=== PATIENT | female | born 1955 | race Caucasian/White ===

== ENCOUNTER → 2017-10-26 | Outpatient (CLI) | payer OTHER ==
[~2017-10-26] VITALS: Ht 165.1 cm; Wt 49.9 kg
[~2017-10-26] MED LIST: LODINE XL400 MG PO; LODINE400 M1 PO; TRAMADOL 50 MG50 MG PO; VALIUM5 MG PO; VITAMIN D32000 UNI1 PO; ZOLOFT100 MG PO
--- NOTE | ~2017-10-26 | HC ---
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 How the diagnosis was reached is not available to me. The patient actually comes to see me because somehow the patient's was very pleased with my care of him in the past and recommended she visit with me. The patient's primary physician is Dr. Dukes, renal case manager is Dr. Kramer, and I believe she might have seen my son, a renal case manager, as well. The patient has been experiencing intermittent episodes of significant malaise associated with nausea, burping, increased heart rate and all in all feeling miserable and this tends to happen every now and then for unknown reason. The patient has discussed these issues with Dr. Dukes. She was referred to the renal case manager as mentioned above and she did have echocardiogram, Holter monitor and a chemical stress test and all those tests were said to be normal. She also was evaluated with arterial blood gases and pulmonary function tests and those were said to be normal as well. The patient has continued to experience these intermittent episodes of not feeling well, the last a few months ago. They tend to last for a while and as they come they tend to go away. Essentially no focal signs or symptoms. The patient has elected to get a device that checks her EKG and blood pressures for which she has paid $100 and these tests have shown she is mainly in sinus rhythm and blood pressure appears to be normal. PAST MEDICAL HISTORY: Osteoarthritis. Osteoporosis. Anxiety. 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 SOCIAL HISTORY: . One daughter. No tobacco. No alcohol. No pets. Used to work at a [employer] in [place] and subsequently became disabled when she was diagnosed to have post-polio syndrome. ALLERGIES: SHE IS ALLERGIC OR INTOLERANT TO PARLODEL (PASSING OUT), PROLIA (BONE PAIN) AND TETRACYCLINE (FACIAL SWELLING). MEDICATIONS: She is on treatment with vitamin D3 at 2000 units daily, sertraline 100 mg daily, tramadol 50 mg maybe once daily, diazepam 5 mg [address] [address] CONSULTATION Name: KAVITA BOLAÑOS Room #: REG LIN Darnell#: [id number] Admission: 10/26/17 Attend Phys: Rylan Vargas Discharge: Date of : 57 Report #: [id number] tablet to one tablet every 6 hours if needed, Etodolac 400 mg as needed. REVIEW OF SYSTEMS: Essentially noncontributory besides what has been stated above. She was recently evaluated by Dr. Hamilton Dukes and blood tests were said to be normal. PHYSICAL EXAMINATION: GENERAL: A well-developed and nourished woman, in no distress. VITAL SIGNS: Height 5 feet 5 inches, weight 110 pounds, BP 142/79, pulse 87, temperature 99.2, O2 saturation 99% on room air. After I finished physical examination, the patient tells me she has a pounding headache. I rechecked her blood pressure, in the sitting position is 157/103 and pulse 92, in the standing position her blood pressure is 176/105 and pulse 98. HEENMT: Head normocephalic, atraumatic. Pupils reactive. Mouth: Good oral hygiene, dentition. Ears: Dull looking tympanic membrane. She wears hearing aids because of decreased hearing. NECK: Supple, no thyromegaly or lymphadenopathy. No carotid bruits. LUNGS: Clear to auscultation. HEART: S1, S2. No gallop or murmur. Peripheral pulses palpable. No bruits over femoral. ABDOMEN: Soft, no masses or megaly. BREAST, PELVIC AND RECTAL: Deferred. EXTREMITIES: No clubbing, cyanosis. NEUROLOGIC: Grossly within normal limits. ASSESSMENT: 1. Entertain possibility of postural hypotension. 2. Situational hypertension (white coat high blood pressure). 3. Post-polio syndrome, history of. 4. Situational anxiety with question depression. SUGGESTIONS: At present, obviously this patient has no any infectious disease process, which is what I am specialized in. The possibility of postural hypotension comes to mind and she has the means to check her blood pressure in the supine, sitting and standing position. Obviously, these blood pressure checks must be done when she is symptomatic. The possibility of obtaining a tilt table test is also in order and this could be scheduled by Dr. Hamilton Dukes. Since she has these major changes in blood pressure, I believe Dr. Dukes's idea of using a beta isabelle is a correct one. Bystolic is a beta isabelle that first comes to mind. Obviously, she must start with the lowest possible dose, like 5 mg daily. I would like to hear from the test results and her progress over the months and years. [facility] [address] [place] [address] CONSULTATION Name: KAVITA BOLAÑOS Room #: MAGALY Darnell#: [id number] Admission: 10/26/17 Attend Phys: Rylan Vargas Discharge: Date of : 57 Report #: [id number] Dukes, thank you for requesting my suggestions in the care of your patient. <ELECTRONICALLY SIGNED> By: Rylan Singer MD 10/27/17 1015 1157 1235 Rylan Singer MD /nt
[2017-10-26 10:55] VITALS: BP 142/79
== END ==
LOC: SEN 08:23
DX: I10 Essential (primary) hypertension (principal); G14 Postpolio syndrome; F41.9 Anxiety disorder, unspecified; M81.0 Age-related osteoporosis without current pathological fracture; Z88.8 Allergy status to other drugs, medicaments and biological substances

== ENCOUNTER → 2018-01-09 | Outpatient (CLI) | payer OTHER | LOC: RAD 08:19 | DX: M47.897 Other spondylosis, lumbosacral region (principal); R10.9 Unspecified abdominal pain ==

== ENCOUNTER → 2018-08-03 | Outpatient (CLI) | payer OTHER ==
--- NOTE | ~2018-08-03 | 2DMMODE ---
[facility] [place] [address] 2 D/M-MODE ECHOCARDIOGRAM Name: KAVITA BOLAÑOS Room #: REG [facility]#: [id number] Admission: 08/03/18 Attend Phys: Lowell Singer Discharge: Date of : 57 Date of Service: 08/03/18 1048 Report #: [id number] THIS REPORT FOR: //name// APPROVED REPORT Study performed: 08/03/2018 09:45:38 EXAM: Comprehensive 2D, Doppler, and color-flow Echocardiogram Patient Location: Out-Patient Status: routine BSA: 1.53 HR: 73 bpm BP: 120/84 mmHg Rhythm: NSR Other Information Study Quality: Adequate Indications Atrial Fibrillation 2D Dimensions RVDd: 26.43 mm IVSd: 7.80 (7-11mm) LVOT Diam: 19.80 (18-24mm) LVDd: 42.87 mm PWd: 7.94 (7-11mm) LVDs: 34.83 (25-40mm) Aortic Root: 33.43 mm Volumes Left Atrial Volume (Systole) Single Plane 4CH: 19.21 mL Single Plane 2CH: 27.24 mL LA ESV Index: 17.00 mL/m2 Aortic Valve AoV Peak Jose Miguel.: 1.09 m/s AO Peak Gr.: 4.71 mmHg LVOT Max P.08 mmHg LVOT Max V: 0.72 m/s ELSY Vmax: 2.05 cm2 Mitral Valve E/A Ratio: 0.7 MV Decel. Time: 273.28 ms MV E Max Jose Miguel.: 0.57 m/s [facility] [address] [place] [address] 2 D/M-MODE ECHOCARDIOGRAM Name: KAVITA BOLAÑOS Room #: REG [facility]#: [id number] Admission: 08/03/18 Attend Phys: Lowell Singer Discharge: Date of : 57 Date of Service: 08/03/18 1048 Report #: [id number] MV A Jose Miguel.: 0.85 m/s MV PHT: 79.25 ms IVRT: 93.43 ms Pulmonary Valve PV Peak Jose Miguel.: 0.59 m/s PV Peak Gr.: 1.41 mmHg Pulmonary Vein P Vein S: 0.52 m/s P Vein A: 0.38 m/s P Vein D: 0.27 m/s P Vein A Dur.: 86.5 msec P Vein S/D Ratio: 1.93 Tricuspid Valve TR Peak Jose Miguel.: 2.16 m/s RAP Estimate: 5.00 mmHg TR Peak Gr.: 18.59 mmHg PA Pressure: 24.00 mmHg Left Ventricle The left ventricle is normal size. There is global hypokinesis of the left ventricle. There is normal left ventricular wall thickness. Left ventricular systolic function is moderately decreased. LVEF is 35-40%. Mild diastolic dysfunction is present (impaired relaxation pattern). Right Ventricle The right ventricle is normal size. The right ventricular systolic function is normal. Atria The left atrium size is normal. The right atrium size is normal. Aortic Valve The aortic valve is normal in structure. Trace aortic regurgitation. There is no aortic valvular stenosis. Mitral Valve The mitral valve is normal in structure. Mild to moderate mitral regurgitation. Tricuspid Valve The tricuspid valve is normal in structure. Trace tricuspid regurgitation. Estimated PAP is 25mmHg. Pulmonic Valve Pulmonic valve is not well visualized. There is no pulmonic valvular [facility] [address] [place] [address] 2 D/M-MODE ECHOCARDIOGRAM Name: BOLAÑOSKAVITA EMMA [facility]: [facility] [id number] Admission: 08/03/18 Attend Phys: Lowell Singer Discharge: Date of : 57 Date of Service: 08/03/18 1048 Report #: [id number] regurgitation seen. Great Vessels The aortic root is normal in size. Ascending aorta is not well visualized. IVC is normal in size and collapses >50% with inspiration. Pericardium There is no pericardial effusion. <Conclusion> Left ventricular systolic function is moderately decreased. There is global hypokinesis of the left ventricle. LVEF 35-40%. Mild diastolic dysfunction is present (impaired relaxation pattern). The aortic valve is normal in structure. Trace aortic regurgitation, no stenosis The mitral valve is normal in structure. Mild to moderate mitral regurgitation. Trace tricuspid regurgitation. Estimated pulmonary artery pressure of 25mmHg. There is no pericardial effusion. <ELECTRONICALLY SIGNED> By: Gael Kramer MD, FACC 08/03/18 1048 1048 1048 Gael Kramer MD, FACC /INF
== END ==
LOC: CV 09:12
DX: I34.0 Nonrheumatic mitral (valve) insufficiency (principal); I48.0 Paroxysmal atrial fibrillation

== ENCOUNTER → 2018-08-30 | Outpatient (CLI) | payer OTHER | LOC: NUC 07:41 | DX: I42.9 Cardiomyopathy, unspecified (principal) ==

== ENCOUNTER → 2018-11-02 | Outpatient (CLI) | payer OTHER ==
--- NOTE | 2018-11-02 11:28 | 2DMMODE ---
[facility] [address] [place] [address] 2 D/M-MODE ECHOCARDIOGRAM Name: KAVITA BOLAÑOS Room #: REG [facility]#: [id number] ������������� Admission: 11/02/18 ������������� Attend Phys: Lowell Singer Discharge: ��� ������������� ��� Date of : 57 Date of Service: 11/02/18 1128 �� Report #: [id number] �������� ��������������������������������������������[id number] THIS REPORT FOR: //name// APPROVED REPORT Study performed: 11/02/2018 10:20:30 EXAM: Comprehensive 2D, Doppler, and color-flow Echocardiogram Patient Location: Out-Patient Room #: Echo lab 2 Status: routine BSA: 1.53 HR: 72 bpm BP: 106/76 mmHg Rhythm: NSR Other Information Study Quality: Good Indications Cardiomyopathy 2D Dimensions RVDd: 24.30 mm IVSd: 7.99 (7-11mm) LVOT Diam: 20.89 (18-24mm) LVDd: 44.22 mm PWd: 9.11 (7-11mm) Ascending Ao: 24.74 (22-36mm) LVDs: 34.63 (25-40mm) Aortic Root: 30.93 mm IVC: 11.00 mm Volumes Left Atrial Volume (Systole) Single Plane 4CH: 13.87 mL Single Plane 2CH: 21.18 mL LA ESV Index: 14.00 mL/m2 Aortic Valve AoV Peak Jose Miguel.: 0.93 m/s AO Peak Gr.: 3.45 mmHg LVOT Max P.41 mmHg LVOT Max V: 0.78 m/s ELSY Vmax: 2.86 cm2 Mitral Valve E/A Ratio: 0.8 MV Decel. Time: 384.27 ms MV E Max Jose Miguel.: 0.51 m/s [facility] [address] [place] [address] 2 D/M-MODE ECHOCARDIOGRAM Name: KAVITA BOLAÑOS Room #: [facility]#: [id number] ������������� Admission: 11/02/18 ������������� Attend Phys: Lowell Singer Discharge: ��� ������������� ��� Date of : 57 Date of Service: 11/02/18 1128 �� Report #: [id number] �������� ��������������������������������������������[id number] MV A Jose Miguel.: 0.62 m/s MV PHT: 111.44 ms IVRT: 138.41 ms Pulmonary Valve PV Peak Jose Miguel.: 0.60 m/s PV Peak Gr.: 1.43 mmHg Pulmonary Vein P Vein S: 0.48 m/s P Vein A: 0.25 m/s P Vein D: 0.42 m/s P Vein A Dur.: 87.7 msec P Vein S/D Ratio: 1.14 Tricuspid Valve TR Peak Jose Miguel.: 1.92 m/s TR Peak Gr.: 14.81 mmHg PA Pressure: 20.00 mmHg Left Ventricle The left ventricle is normal size. There is normal left ventricular wall thickness. Left ventricular systolic function is moderately decreased. LVEF is 40%. Grade I - abnormal relaxation pattern. Right Ventricle The right ventricle is normal size. The right ventricular systolic function is normal. Atria The left atrium size is normal. The right atrium size is normal. Aortic Valve The aortic valve is normal in structure. No aortic regurgitation is present. There is no aortic valvular stenosis. Mitral Valve The mitral valve is normal in structure. Mild mitral regurgitation. No evidence of mitral valve stenosis. Tricuspid Valve The tricuspid valve is normal in structure. There is trace tricuspid regurgitation. Estimated PAP 20 mmHg. There is no pulmonary hypertension. Pulmonic Valve The pulmonary valve is normal in structure. Trace pulmonic regurgitation. [facility] [address] [place] [address] 2 D/M-MODE ECHOCARDIOGRAM Name: KAVITA BOLAÑOS [facility]: [facility] [id number] ������������� Admission: 11/02/18 ������������� Attend Phys: Lowell Singer Discharge: ��� ������������� ��� Date of : 57 Date of Service: 11/02/18 1128 �� Report #: [id number] �������� ��������������������������������������������[id number] Great Vessels The aortic root is normal in size. IVC is normal in size and collapses >50% with inspiration. Pericardium There is no pericardial effusion. <Conclusion> The left ventricle is normal size. Left ventricular systolic function is moderately decreased. LVEF is 40%. The aortic valve is normal in structure. The mitral valve is normal in structure. The tricuspid valve is normal in structure. There is trace tricuspid regurgitation. Estimated PAP 20 mmHg. There is no pulmonary hypertension. The pulmonary valve is normal in structure. Trace pulmonic regurgitation. There is no pericardial effusion. ��������������������������������������������� <ELECTRONICALLY SIGNED> ���������������������������������������� By: Sincere Tomlin MD ��������������������������������������������� 11/02/18 1128 1128 1128 Sincere Tomlin MD /INF
== END ==
LOC: CV 09:56
DX: I34.0 Nonrheumatic mitral (valve) insufficiency (principal); I42.8 Other cardiomyopathies

== ENCOUNTER → 2019-02-12 | Outpatient (CLI) | payer OTHER ==
--- NOTE | 2019-02-12 09:36 | 2DMMODE ---
[facility] [place] [address] 2 D/M-MODE ECHOCARDIOGRAM Name: KAVITA BOLAÑOS Room #: REG [facility]#: [id number] ������������� Admission: 02/12/19 ������������� Attend Phys: Lowell Singer Discharge: ��� ������������� ��� Date of : 57 Date of Service: 02/12/19 0936 �� Report #: [id number] �������� ��������������������������������������������[id number] THIS REPORT FOR: //name// APPROVED REPORT Study performed: 02/12/2019 08:54:17 EXAM: Comprehensive 2D, Doppler, and color-flow Echocardiogram Patient Location: Out-Patient Status: routine BSA: 1.52 HR: 65 bpm BP: 118/76 mmHg Rhythm: NSR Other Information Study Quality: Good Indications Cardiomyopathy 2D Dimensions RVDd: 32.70 mm IVSd: 8.47 (7-11mm) LVOT Diam: 19.66 (18-24mm) LVDd: 46.78 mm PWd: 8.19 (7-11mm) Ascending Ao: 33.40 (22-36mm) LVDs: 36.28 (25-40mm) Aortic Root: 34.92 mm Volumes Left Atrial Volume (Systole) Single Plane 4CH: 31.44 mL Single Plane 2CH: 35.99 mL LA ESV Index: 25.00 mL/m2 Aortic Valve AoV Peak Jose Miguel.: 1.22 m/s AO Peak Gr.: 5.97 mmHg LVOT Max P.13 mmHg LVOT Max V: 0.73 m/s ELSY Vmax: 1.81 cm2 Mitral Valve E/A Ratio: 0.8 MV Decel. Time: 195.70 ms MV E Max Jose Miguel.: 0.71 m/s [facility] [address] [place] [address] 2 D/M-MODE ECHOCARDIOGRAM Name: KAVITA BOLAÑOS Room #: [facility]#: [id number] ������������� Admission: 02/12/19 ������������� Attend Phys: Lowell Singer Discharge: ��� ������������� ��� Date of : 57 Date of Service: 02/12/19 0936 �� Report #: [id number] �������� ��������������������������������������������[id number] MV A Jose Miguel.: 0.91 m/s MV PHT: 56.75 ms IVRT: 110.73 ms Pulmonary Valve PV Peak Jose Miguel.: 0.59 m/s PV Peak Gr.: 1.39 mmHg Pulmonary Vein P Vein S: 0.57 m/s P Vein D: 0.53 m/s P Vein S/D Ratio: 1.08 Tricuspid Valve TR Peak Jose Miguel.: 2.30 m/s RAP Estimate: 5.00 mmHg TR Peak Gr.: 21.25 mmHg PA Pressure: 26.00 mmHg Left Ventricle The left ventricle is normal size. There is mild global hypokinesis of the left ventricle. There is normal left ventricular wall thickness. Left ventricular systolic function is mild to moderately decreased. LVEF is 40-45%. Mild diastolic dysfunction is present (impaired relaxation pattern). Right Ventricle The right ventricle is normal size. The right ventricular systolic function is normal. Atria The left atrium size is normal. The right atrium size is normal. Aortic Valve The aortic valve is normal in structure. No aortic regurgitation is present. There is no aortic valvular stenosis. Mitral Valve The mitral valve is normal in structure. Moderate mitral regurgitation. Tricuspid Valve The tricuspid valve is normal in structure. Trace to mild tricuspid regurgitation. Estimated PAP is 25-30mmHg. Pulmonic Valve The pulmonary valve is normal in structure. Trace pulmonic [facility] [address] [place] [address] 2 D/M-MODE ECHOCARDIOGRAM Name: KAVITA BOLAÑOS EMMA Room #: REG [facility]#: [id number] ������������� Admission: 02/12/19 ������������� Attend Phys: Lowell Singer Discharge: ��� ������������� ��� Date of : 57 Date of Service: 02/12/19 0936 �� Report #: [id number] �������� ��������������������������������������������[id number] regurgitation. Great Vessels The aortic root is normal in size. The ascending aorta is normal in size. IVC is normal in size and collapses >50% with inspiration. Pericardium There is no pericardial effusion. <Conclusion> The left ventricle is normal size. LVEF is 40-45%. There is mild global hypokinesis of the left ventricle. The aortic valve is normal in structure. The mitral valve is normal in structure. Moderate mitral regurgitation. The tricuspid valve is normal in structure. Trace to mild tricuspid regurgitation. Estimated PAP is 25-30mmHg. The pulmonary valve is normal in structure. Trace pulmonic regurgitation. There is no pericardial effusion. ��������������������������������������������� <ELECTRONICALLY SIGNED> ���������������������������������������� By: Sincere Tomlin MD ��������������������������������������������� 02/12/1935 5 5 Sincere Tomlin MD /INF
== END ==
LOC: CV 08:17
DX: I08.1 Rheumatic disorders of both mitral and tricuspid valves (principal)

== ENCOUNTER → 2019-07-19 | Outpatient (CLI) | payer OTHER ==
--- NOTE | 2019-07-19 10:03 | 2DMMODE ---
[facility] [address] [place] [address] 2 D/M-MODE ECHOCARDIOGRAM Name: KAVITA BOLAÑOS Room #: REG [facility]#: [id number] Admission: 07/19/19 Attend Phys: Lowell Singer Discharge: Date of : 57 Report #: [id number] THIS REPORT FOR: //name// APPROVED REPORT Study performed: 07/19/2019 08:55:12 EXAM: Comprehensive 2D, Doppler, and color-flow Echocardiogram Patient Location: Out-Patient Status: routine BSA: 1.53 HR: 66 bpm BP: 117/70 mmHg Rhythm: Irregular Other Information Study Quality: Good Indications chest pain, shortness of breath, mitral valve disease, cardiomyopathy. 2D Dimensions RVDd: 28.83 mm IVSd: 8.39 (7-11mm) LVOT Diam: 18.75 (18-24mm) LVDd: 48.03 mm PWd: 6.20 (7-11mm) Ascending Ao: 28.34 (22-36mm) LVDs: 36.38 (25-40mm) Aortic Root: 33.39 mm IVC: 18.00 mm Volumes Left Atrial Volume (Systole) Single Plane 4CH: 14.87 mL Single Plane 2CH: 38.69 mL LA ESV Index: 20.00 mL/m2 Aortic Valve AoV Peak Jose Miguel.: 0.97 m/s AO Peak Gr.: 3.78 mmHg Mitral Valve E/A Ratio: 0.9 MV Decel. Time: 234.84 ms MV E Max Jose Miguel.: 0.70 m/s MV A Jose Miguel.: 0.79 m/s [facility] [address] [place] [address] 2 D/M-MODE ECHOCARDIOGRAM Name: KAVITA BOLAÑOS Room #: REG [facility]#: [id number] Admission: 07/19/19 Attend Phys: [facility] Discharge: Date of : 57 Report #: [id number] MV PHT: 68.10 ms IVRT: 79.58 ms Pulmonary Valve PV Peak Jose Miguel.: 0.71 m/s PV Peak Gr.: 2.03 mmHg Pulmonary Vein P Vein S: 0.48 m/s P Vein A: 0.36 m/s P Vein D: 0.36 m/s P Vein A Dur.: 79.6 msec P Vein S/D Ratio: 1.33 Tricuspid Valve TR Peak Jose Miguel.: 2.40 m/s RAP Estimate: 5.00 mmHg TR Peak Gr.: 23.10 mmHg PA Pressure: 28.00 mmHg Left Ventricle The left ventricle is normal size. There is normal left ventricular wall thickness. Left ventricular systolic function is mildly decreased. LVEF is 55%. Mild diastolic dysfunction is present (impaired relaxation pattern). Right Ventricle The right ventricle is normal size. The right ventricular systolic function is normal. Atria The left atrium size is normal. The right atrium size is normal. Aortic Valve The aortic valve is normal in structure. Trace aortic regurgitation. There is no aortic valvular stenosis. Mitral Valve The mitral valve is normal in structure. Moderate mitral regurgitation. No evidence of mitral valve stenosis. Tricuspid Valve The tricuspid valve is normal in structure. Mild tricuspid regurgitation. Estimated PAP is 28mmHg. Pulmonic Valve The pulmonary valve is normal in structure. Trace pulmonic regurgitation. [facility] [place] [address] 2 D/M-MODE ECHOCARDIOGRAM Name: KAVITA BOLAÑOS Room #: REG [facility]#: [id number] Admission: 07/19/19 Attend Phys: Lowell Singer Discharge: Date of : 57 Report #: [id number] Great Vessels The aortic root is normal in size. The ascending aorta is normal in size. IVC is normal in size and collapses >50% with inspiration. Pericardium There is no pericardial effusion. <Conclusion> The left ventricle is normal size. LVEF is 55%. The aortic valve is normal in structure. Trace aortic regurgitation. The mitral valve is normal in structure. Moderate mitral regurgitation. The tricuspid valve is normal in structure. Mild tricuspid regurgitation. Estimated PAP is 28mmHg. The pulmonary valve is normal in structure. Trace pulmonic regurgitation. There is no pericardial effusion. <ELECTRONICALLY SIGNED> By: Sincere Tomlin MD 07/19/19 1002 1002 1002 Sincere Tomlin MD /INF
== END ==
LOC: CV 08:13
DX: I08.1 Rheumatic disorders of both mitral and tricuspid valves (principal); G14 Postpolio syndrome; I50.22 Chronic systolic (congestive) heart failure; I42.8 Other cardiomyopathies

== ENCOUNTER → 2019-07-31 | Outpatient (CLI) | payer OTHER | LOC: RAD 12:29 | DX: J84.10 Pulmonary fibrosis, unspecified (principal) ==

== ENCOUNTER → 2019-08-02 | Outpatient (CLI) | payer OTHER ==
[2019-08-02 08:14] LABS: CREATININE 1.1 mg/dL (0.6-1.0)
== END ==
LOC: CAT 07:29
PROVIDERS: Internal Medicine
DX: R91.8 Other nonspecific abnormal finding of lung field (principal); M47.814 Spondylosis without myelopathy or radiculopathy, thoracic region; J84.10 Pulmonary fibrosis, unspecified; R93.89 Abnormal findings on diagnostic imaging of other specified body structures; Z88.8 Allergy status to other drugs, medicaments and biological substances

== ENCOUNTER → 2019-09-06 | Outpatient (CLI) | payer OTHER | LOC: ULTRA 10:31 | DX: I65.23 Occlusion and stenosis of bilateral carotid arteries (principal) ==

== ENCOUNTER → 2019-09-12 | Outpatient (CLI) | payer OTHER | LOC: SJCVC 10:49 | DX: I34.0 Nonrheumatic mitral (valve) insufficiency (principal); I42.8 Other cardiomyopathies; I47.1 Supraventricular tachycardia; E78.5 Hyperlipidemia, unspecified; G47.61 Periodic limb movement disorder; E55.9 Vitamin D deficiency, unspecified ==

== ENCOUNTER → 2019-10-08 | Outpatient (CLI) | payer OTHER | LOC: NUC 08:23 | DX: M81.0 Age-related osteoporosis without current pathological fracture (principal); Z78.0 Asymptomatic menopausal state ==

== ENCOUNTER → 2019-12-16 | Outpatient (CLI) | payer OTHER | LOC: SJCVC 13:56 | DX: R94.31 Abnormal electrocardiogram [ECG] [EKG] (principal); I42.8 Other cardiomyopathies; I42.9 Cardiomyopathy, unspecified; I34.0 Nonrheumatic mitral (valve) insufficiency; G14 Postpolio syndrome ==

== ENCOUNTER → 2019-12-26 | Outpatient (CLI) | payer OTHER | LOC: CAT 09:27 | DX: R91.8 Other nonspecific abnormal finding of lung field (principal); J98.4 Other disorders of lung ==

== ENCOUNTER → 2020-06-10 | Outpatient (CLI) | payer OTHER | LOC: CAT 07:20 | PROVIDERS: ATTEND Internal Medicine | DX: R91.1 Solitary pulmonary nodule (principal); R91.8 Other nonspecific abnormal finding of lung field ==

== ENCOUNTER → 2020-08-26 | Outpatient (CLI) | payer OTHER | LOC: CAT 07:21 | PROVIDERS: ATTEND Family Medicine | DX: Z13.6 Encounter for screening for cardiovascular disorders (principal); I25.10 Atherosclerotic heart disease of native coronary artery without angina pectoris; E78.00 Pure hypercholesterolemia, unspecified ==

== ENCOUNTER → 2020-10-08 | Outpatient (CLI) | payer OTHER | LOC: SJCVCIMAG 08:17 | PROVIDERS: ATTEND Internal Medicine | DX: I34.0 Nonrheumatic mitral (valve) insufficiency (principal); R94.31 Abnormal electrocardiogram [ECG] [EKG]; I42.8 Other cardiomyopathies; E78.5 Hyperlipidemia, unspecified; G14 Postpolio syndrome; M81.0 Age-related osteoporosis without current pathological fracture; E55.9 Vitamin D deficiency, unspecified; Z88.8 Allergy status to other drugs, medicaments and biological substances; Z79.899 Other long term (current) drug therapy; Z82.49 Family history of ischemic heart disease and other diseases of the circulatory system ==

== ENCOUNTER → 2021-04-09 | Outpatient (CLI) | payer OTHER | LOC: SJCVC 11:14 | PROVIDERS: ATTEND Internal Medicine | DX: I42.8 Other cardiomyopathies (principal); I34.0 Nonrheumatic mitral (valve) insufficiency; E78.5 Hyperlipidemia, unspecified; G14 Postpolio syndrome; Z79.899 Other long term (current) drug therapy; Z88.1 Allergy status to other antibiotic agents; Z88.8 Allergy status to other drugs, medicaments and biological substances ==

== ENCOUNTER → 2021-04-16 | Outpatient (CLI) | payer OTHER | LOC: SJCVCIMAG 07:22 | PROVIDERS: ATTEND Internal Medicine | DX: I08.1 Rheumatic disorders of both mitral and tricuspid valves (principal); I42.8 Other cardiomyopathies ==

== ENCOUNTER → 2021-06-10 | Outpatient (CLI) | payer OTHER | LOC: CAT 05-19 13:32 | PROVIDERS: ATTEND Family Medicine | DX: R91.8 Other nonspecific abnormal finding of lung field (principal); R59.0 Localized enlarged lymph nodes ==